=== PATIENT | female | born 1990 | race Caucasian/White ===

== ENCOUNTER 2021-02-16 18:15 | Emergency (ER) | payer MEDICAID ==
[~2021-02-16] VITALS: Ht 154.9 cm; Wt 70.3 kg
[2021-02-16 19:09] LABS: BASOPHILS 0.4 % (0.0-2.0); EOSINOPHILS 1.1 % (0.0-3.0); HEMATOCRIT 41.1 % (37.0-47.0); HEMOGLOBIN 14.4 gm/dL (12.0-15.0); LYMPHOCYTES 3.5 % (24.0-44.0); MCH 33.8 pg (26.0-34.0); MCV 96.7 fL (80.0-100.0); MONOCYTES 3.2 % (1.0-8.0); PLATELET COUNT 165 thou/uL (150-400); POLYS 91.8 % (36.0-66.0); RBC 4.25 mil/uL (4.20-5.00); WBC 6.5 thou/uL (4.0-11.0)
[2021-02-16 19:12] LABS: URINE BILIRUBIN NEGATIVE (Negative); URINE BLOOD 1+ (Negative); URINE CLARITY CLEAR; URINE COLOR YELLOW; URINE GLUCOSE-RANDOM* NEGATIVE (Negative); URINE KETONES 1+ (Negative); URINE LEUKOCYTES-REFLEX NEGATIVE (Negative); URINE NITRITE-REFLEX NEGATIVE (Negative); URINE PROTEIN (DIPSTICK) NEGATIVE (Negative); URINE SPECIFIC GRAVITY 1.015 (1.005-1.035); URINE UROBILINOGEN 0.2 E.U./dl (0.2-1.0)
[2021-02-16 19:15] LABS: CALCIUM 9.2 mg/dL (8.5-10.1); POTASSIUM 3.1 mmol/L (3.5-5.1)
[2021-02-16 19:22] LABS: ALBUMIN 3.9 g/dL (3.4-5.0); TOTAL BILIRUBIN 1.4 mg/dL (0.2-1.0); TOTAL PROTEIN 7.1 g/dL (6.4-8.2)
[2021-02-16 19:23] LABS: BACTERIA-REFLEX 1-9 Few /HPF (None Seen); SQUAMOUS 4-10 Moderate /LPF (0-3); URINE RBC 1-2 Rare /HPF (NONE SEEN); URINE WBC-REFLEX 0-5 Rare /HPF (0-5)
[2021-02-16 19:24] LABS: CASTS None Seen /LPF (None Seen); CRYSTALS None Seen /LPF (None Seen)
[2021-02-16 20:33] VITALS: BP 126/79
== END 2021-02-16 20:33 | disposition home or self-care (01) ==
LOC: ER 18:15
PROVIDERS: Nurse Practitioner
DX: R10.32 Left lower quadrant pain (principal); R11.0 Nausea; R25.2 Cramp and spasm; Z87.42 Personal history of other diseases of the female genital tract; F17.210 Nicotine dependence, cigarettes, uncomplicated